=== PATIENT | female | born 1965 | race Caucasian/White ===

== ENCOUNTER → 2019-08-08 | Outpatient (CLI) | payer OTHER ==
[~2019-08-08] MED LIST: ASCO10004 PO; CALC1CAP8 PO; CHOL100014 PO; FLAXSEED OIL PO; GINK120T3 PO; GLUC1CAP13 PO; MACULAR PROTECT PO; MULT-154 PO; VITA150T PO; VITAMIN E PO; [UNRECOGNIZED DRUG - OTHER] PO
== END | disposition home or self-care (01) ==
LOC: CFH 11:37
PROVIDERS: ATTEND Obstetrics & Gynecology
DX: Z12.31 Encounter for screening mammogram for malignant neoplasm of breast (principal); N64.89 Other specified disorders of breast
CPT/HCPCS: 77063; 77067